=== PATIENT | female | born 1945 | race Caucasian/White ===

== ENCOUNTER 2019-10-24 15:27 | Outpatient (CLI) | payer MEDICARE, SELFPAY ==
--- NOTE | ~2019-10-24 | XR_ITS ---
EXAMINATION: XR wrist RT 2V DATE: 10/24/2019 16:00 INDICATION: Right wrist lump and pain. TECHNIQUE: 2 views of right wrist were obtained. COMPARISON: None. FINDINGS: Bone alignment is normal. No fracture. There is severe osteoarthritis of triscaphe joint an d moderate osteoarthritis of first carpometacarpal joint. IMPRESSION: 1. Polyarticular osteoarthritis. Reviewed, dictated and finalized at location A. [employer]
== END 2019-10-24 15:28 | disposition home or self-care (01) ==
LOC: ANHIMG 15:44
PROVIDERS: PCP Family Medicine; Visit Provider Physician Assistant
DX: M25.531 Pain in right wrist (principal); M19.031 Primary osteoarthritis, right wrist
CPT/HCPCS: 73100

== ENCOUNTER 2020-04-14 12:06 | Outpatient (CLI) | payer MEDICARE, SELFPAY ==
--- NOTE | ~2020-04-14 | MM_ITS ---
EXAMINATION: MM diagnostic tan LT w sandy HISTORY: Six-month follow-up for probably benign focal asymmetry of the left breast. TECHNIQUE: Craniocaudal, mediolateral, and mediolateral oblique 3-D tomosynthesis images of the left breast were performed and synthetic 2-D images were generated. CAD analysis was submitted and interpr eted. COMPARISON: 08/27/2019, 07/10/2019, 06/26/2018 BREAST PARENCHYMAL COMPOSITION: There are scattered areas of fibroglandular density. FINDINGS: There are multiple areas of fat necrosis in the breast. The previously described focal asym metry in the upper outer quadrant of the left breast continues to decrease in prominence. Findings ar e most consistent with resolving sequela of prior left breast trauma. No suspicious mass, calcificati on, or architectural distortion are identified. IMPRESSION: 1. Resolving sequela of prior left breast trauma without mammographic evidence of malignancy. 2. Routine screening mammography is recommended. BI-RADS Category 2: Benign finding(s). Reviewed, dictated and finalized at location A.
== END 2020-04-14 12:07 | disposition home or self-care (01) ==
LOC: ANHIMG 12:07
PROVIDERS: PCP Family Medicine; Visit Provider Family Medicine
DX: R92.8 Other abnormal and inconclusive findings on diagnostic imaging of breast (principal)
CPT/HCPCS: 77061; 77065; G0279

== ENCOUNTER 2021-02-13 13:15 | Emergency (ER) | payer MEDICARE, SELFPAY ==
--- NOTE | ~2021-02-13 | XR_ITS ---
EXAMINATION: XR shoulder LT min 2V DATE: 02/13/2021 15:00 INDICATION: Left shoulder pain. TECHNIQUE: 4 views of left shoulder were obtained. COMPARISON: None. FINDINGS: Bone alignment is normal. No fracture. There is mild osteoarthritis of glenohumeral joint a nd acromioclavicular joint characterized by tiny marginal osteophytes. IMPRESSION: 1. Mild polyarticular osteoarthritis. Reviewed, dictated and finalized at location A.
[2021-02-13 13:47] VITALS: BP 155/80; PULSE 84; RESP 20; TEMP 36.8; O2SAT 97
--- NOTE | 2021-02-13 15:56 | ED.EXTPRO ---
HPI - Extremity Problem General Chief complaint: Extremity Problem,Nontraumatic Stated complaint: shoulder pain, numbnes in 2 fingers Time Seen by Provider: 02/13/21 14:38 Source: patient Mode of arrival: ambulatory Limitations: no limitations History of Present Illness HPI Narrative: Patient is a 75 year old female who presents complaining of left shoulder pain. She denies injury. Patient also reports tingling to left 4th and 5th digits starting this am. Patient denies all other complaints. Family Nurse are equal, no facial droop noted. She denies taking over the counter medication prior to arrival. MD Complaint: extremity pain Related Data Home Medications Medication Instructions Recorded Confirmed aspirin 81 mg tablet,delayed 81 mg PO DAILY 07/25/19 12/02/20 release lorazepam 1 mg tablet 1 mg PO DAILY PRN 07/25/19 12/02/20 Allergies Allergy/AdvReac Type Severity Reaction Status Date / Time azithromycin Allergy Intermediate Rash Verified 12/02/20 13:19 sulfamethoxazole Allergy Intermediate Rash Verified 12/02/20 13:19 Tetracyclines Allergy Intermediate Nausea and Verified 12/02/20 13:19 Vomiting amlodipine Allergy Unknown Unknown Verified 12/02/20 13:19 erythromycin base Allergy Unknown uoset Verified 12/02/20 13:19 stomach trimethoprim Allergy Unknown Unknown Verified 12/02/20 13:19 Review of Systems Review of Systems: Narrative: CONSTITUTIONAL: Denies fever, chills, or sweats. EYES: Denies visual changes, redness, or discharge. ENT: Denies rhinorrhea, congestion, sore throat, or otalgia. CARDIOVASCULAR: Denies chest pain, palpitations, or edema. RESPIRATORY: Denies cough or dyspnea. GASTROINTESTINAL: Denies abdominal pain, nausea, vomiting, or diarrhea. GENITOURINARY: Denies dysuria or hematuria. SKIN: Denies rash or itching. MUSCULOSKELETAL: Reports left shoulder pain, tingling to the left fourth and fifth fingers NEUROLOGIC: Denies headache, numbness, dizziness, or weakness. PSYCHIATRIC: Denies anxiety or depression. [facility] Past Medical History Medical History Chronic diarrhea Decubitus ulcer, buttock Right wrist pain Tremor Family History Family History Father Hypertension Cerebrovascular accident Mother Carcinoma of colon Family history of diabetes mellitus in first degree relative Family history of coronary artery disease Sibling Family history of diabetes mellitus in first degree relative Other Diabetes mellitus Family history of arthritis Social History Social History Smoking status: Never smoker Alcohol intake: never Substance use: never Substance use type: does not use Gender identity (if verbalized by the patient): Female Comments At the time of signature, I have reviewed and agree with nursing past medical, surgical, social, and family history unless otherwise noted. Please see nursing chart for further information. There is no relevant family history pertinent to the presenting complaint. Exam Narrative: Exam Narrative: GENERAL: Well-appearing, well-nourished, and in no acute distress. HEAD: Normocephalic, atraumatic. EYES: EOMI. No redness or drainage. Conjunctiva are normal. ENT: Mucous membranes pink and moist. CHEST: No respiratory distress. Clear to auscultation. HEART: Regular rate and rhythm. EXTREMITIES: Normal range of motion. No edema. Family Nurse equal, good capillary refill and distal sensation left fourth and fifth digits. SKIN: Warm, dry, no rash. NEURO: No focal deficits. Alert and oriented x3. Gait steady. PSYCH: Normal affect. No signs of depression or anxiety. Course Vital Signs Vital signs: Vital Signs Temperature 36.8 C 02/13/21 13:47 Pulse Rate 84 02/13/21 13:47 Respiratory Rate 20 02/13/21 13:47 Blood Pressure 155/80 H 02/13/21 13:47 Pulse Oximetry 97 0
[2021-02-13 16:09] VITALS: BP 157/80; PULSE 96; RESP 14; TEMP 36.6; O2SAT 9
== END 2021-02-13 16:44 | disposition home or self-care (01) ==
PROVIDERS: Emergency Provider Nurse Practitioner; PCP Family Medicine
DX: M25.512 Pain in left shoulder (principal); R29.898 Other symptoms and signs involving the musculoskeletal system; Z79.82 Long term (current) use of aspirin
CPT/HCPCS: 73030; 99283

== ENCOUNTER → 2021-04-13 12:37 | Outpatient (CLI) | payer MEDICARE, SELFPAY ==
--- NOTE | ~2021-04-13 | MM_ITS ---
EXAMINATION: MM screening [facility] BI w sandy HISTORY: Screening mammogram TECHNIQUE: Craniocaudal and mediolateral oblique 3-D tomosynthesis images were obtained and synthetic 2-D images were generated. CAD analysis was submitted and interpreted. COMPARISON: 04/14/2020, 08/27/2019, 07/10/2019, 06/26/2018 BREAST PARENCHYMAL COMPOSITION: There are scattered areas of fibroglandular density. FINDINGS: There are oil cysts in both breasts. There is no evidence of suspicious mass, calcification , or architectural distortion to suggest malignancy in either breast. There has been no suspicious in terval change. IMPRESSION: 1. No mammographic evidence of malignancy. 2. Recommend routine screening mammography in one year. BI-RADS Category 2: Benign finding(s). Reviewed, dictated and finalized at location A.
== END ==
PROVIDERS: PCP Family Medicine; Visit Provider Family Medicine
DX: Z12.31 Encounter for screening mammogram for malignant neoplasm of breast (principal)
CPT/HCPCS: 77063; 77067

== ENCOUNTER → 2022-02-02 09:52 | Outpatient (CLI) | payer MEDICARE, SELFPAY ==
--- NOTE | ~2022-02-02 | MMUS_ITS ---
EXAMINATION: MM diagnostic tan LT w sandy, US breast LT limited HISTORY: Palpable left breast abnormality TECHNIQUE: Additional 3-D tomosynthesis images of the left breast were performed and synthetic 2-D im ages were generated. CAD analysis was submitted and interpreted. High resolution Limited left breast ultrasound was performed. COMPARISON: Comparison to multiple prior studies sequentially, with oldest reviewed study dated 05/23. BREAST PARENCHYMAL COMPOSITION: Breast composed of scattered areas of fibroglandular density FINDINGS: MAMMOGRAPHIC FINDINGS: There are no suspicious masses, calcifications or architectural distortion in the left breast to sugg est malignancy. There are multiple benign we'll cysts, largest of which corresponds to the area of pa lpable concern. ULTRASOUND: Limited left breast ultrasound: In the area of palpable concern at 11:00, 9 cm from the nipple there is a cyst measuring 1 cm corresponding to the finding on mammography. No sonographic evidence for mal ignancy. IMPRESSION: 1. No evidence for malignancy in the left breast. Benign findings. 2. Routine yearly screening mammogram and regular clinical breast examination are recommended. BI-RADS Category 2: Benign finding(s). Reviewed, dictated and finalized at location A. IMPRESSION: 1. No evidence for malignancy in the left breast. Benign findings. 2. Routine yearly screening mammogram and regular clinical breast examination a re recommended. BI-RADS Category 2: Benign finding(s).
== END ==
PROVIDERS: PCP Family Medicine; Visit Provider Family Medicine
DX: R92.8 Other abnormal and inconclusive findings on diagnostic imaging of breast (principal)
CPT/HCPCS: 76642; 77061; 77065; G0279

== ENCOUNTER → 2022-08-17 11:22 | Outpatient (CLI) | payer MEDICARE, SELFPAY ==
--- NOTE | ~2022-08-17 | CT_ITS ---
Non-contrast Head CT History: Diplopia COMPARISON: 12/05/2018 Technique: Axial non-contrast imaging of the brain was performed. Dose reduction technique was used on this scan by utilizing automated exposure control and iterative reconstruction technique. The dose -length product (DLP) was 726.40 mGy-cm. Findings: There is no evidence of intracranial hemorrhage, mass lesion, or acute infarct. Brain par enchyma appears normal. Ventriculostomy shunt catheter in place. The ventricles and subarachnoid spac es are normal in size. The calvarium appears normal. The visualized paranasal sinuses and mastoid a ir cells are clear. Impression: Nodes acute abnormality. Ventricular shunt catheter in place. Reviewed, dictated and finalized at location . MBLER TUBING Impression: Nodes acute abnormality. Ventricular shunt catheter in place.
== END ==
PROVIDERS: PCP Family Medicine
DX: H53.2 Diplopia (principal); Z98.2 Presence of cerebrospinal fluid drainage device
CPT/HCPCS: 70450

== ENCOUNTER → 2022-09-14 13:20 | Outpatient (CLI) | payer MEDICARE, SELFPAY ==
--- NOTE | ~2022-09-14 | MM_ITS ---
EXAMINATION: MM screening tan BI w sandy HISTORY: Screening mammogram TECHNIQUE: Craniocaudal and mediolateral oblique 3-D tomosynthesis images were obtained and synthetic 2-D images were generated. CAD analysis was submitted and interpreted. COMPARISON: 02/02/2022 diagnostic left mammogram and limited left breast ultrasound examination 04/13/2021 bilateral screening mammogram 04/10/2020 diagnostic left mammogram 1. Slice 01/2020 diagnostic left mammogram 07/10/2019, 06/26/2018 bilateral screening mammogram BREAST PARENCHYMAL COMPOSITION: There are scattered areas of fibroglandular density. FINDINGS: Numerous benign calcifications are noted, primarily on the left, with some scattered oil cy sts. There is no evidence of suspicious mass, calcification, or architectural distortion to suggest m alignancy in either breast. There has been no suspicious interval change. IMPRESSION: 1. No mammographic evidence of malignancy. 2. Recommend routine screening mammography in one year. BI-RADS Category 2: Benign finding(s). Reviewed, dictated and finalized at location A. 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
== END ==
PROVIDERS: PCP Family Medicine; Visit Provider Family Medicine
DX: Z12.31 Encounter for screening mammogram for malignant neoplasm of breast (principal)
CPT/HCPCS: 77063; 77067